=== PATIENT | male | born 2005 | race Caucasian/White ===

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

== ENCOUNTER 2025-05-15 15:46 | Emergency (ER) | payer BC, OTHER, SELFPAY ==
[2025-05-15 15:47] VITALS: BP 106/72; PULSE 96; RESP 18; TEMP 36.3; O2SAT 99; BMI 22.0
--- NOTE | 2025-05-15 16:28 | EX.ED.UPPERE ---
HPI History of Present Illness Chief Complaint: Upper Extremity Injury Narrative Narrative: Patient is a 20-year-old male with no known significant past medical history who presented to the emergency department chief complaint of left wrist pain. Patient states that he was playing soccer he tripped and someone landed on his wrist causing him immediate pain. He states that he not take anything for pain yet. He states that it hurts mainly around his wrist region. PFSH PFSH Home Medications ?Medication ?Instructions ?Recorded ?Last Taken ?Type escitalopram oxalate 10 mg tablet 10 mg PO DAILY 08/16/24 Unknown History lisdexamfetamine 30 mg capsule 30 mg PO DAILY 08/16/24 Unknown History (Vyvanse) ondansetron 4 mg disintegrating 4 mg PO Q6H PRN nausea and 05/15/25 Unknown Rx tablet vomiting #20 tabs oxycodone-acetaminophen 5 mg-325 1 tab PO Q6H PRN pain 2 days #8 05/15/25 Unknown Rx mg tablet (Endocet) tabs Allergy/AdvReac Type Severity Reaction Status Date / Time Fish Containing Products Allergy Severe Anaphylaxis Verified 05/15/25 15:47 (seafood) Surgical History Hx of shoulder surgery History of nasal surgery Social History Smoking Status: Never smoker ROS ROS ED ROS Narrative Neurological: Denies any numbness, weakness, tingling Musculoskeletal: Complains of left wrist pain as noted above Skin: Denies any rashes or lesions EXAM Physical Exam Narrative Exam Narrative: General: Patient lying in bed rest comfortably did not appear to be in acute distress Head: Atraumatic, normocephalic Eyes: PERRL bilaterally, EOMI bilaterally, no conjunctival injection noted Neck: Soft, supple, trachea midline Cardiovascular: Regular rate and rhythm Musculoskeletal: Patient has tenderness palpation over the left wrist, patient is able giving the okay sign and thumbs up sign Extremities: Radial pulses +2/4 in the bilateral extremities Neurological: Patient follow commands knew that he was at [facility] year is 2024 sensation grossly intact in the median, ulnar and radial nerve distribution bilaterally Skin: Warm, dry, intact no rashes or lesions noted Const Vital Signs: 05/15/25 15:47 Temperature 97.4 F L Temperature Source Temporal Pulse Rate 96 Respiratory Rate 18 Blood Pressure 106/72 Blood Pressure Mean 83 Pulse Ox 99 Oxygen Delivery Method Room Air MDM MDM MDM Narrative Medical decision making narrative: Patient is a 20-year-old male who presented to the emergency department the chief complaint of left wrist pain. On the differential diagnosis includes but not limited to distal radius fracture, ulnar fracture, both bone forearm fracture, musculoskeletal strain, wrist sprain. Patient be given [place] and Zofran. He will be reevaluated Patient's x-ray of the wrist reviewed by myself by radiology showed probable nondisplaced comminuted fracture of the scaphoid bone normal alignment. Discussed case with on-call orthopedic surgeon Dr. Rice who recommends placing the patient in thumb spica splint and obtain a CT scan that he will follow-up on in the office. I discussed this plan with the patient and family at bedside they are agreeable to this plan. See procedure note for separate details. He was advised to ice, elevate rotate Tylenol and ibuprofen [id number] you were given a prescription for severe pain and was advised to not operate anything under the influence this medication. He is given prescription also for Zofran to go with this. He is vies return with worsening symptoms or concerns. He is agreeable this plan all course concerns answered he is discharged home in stable condition. Procedure note Procedure: Thumb spica splint Indication: Scaphoid fracture Patient had Webril applied to the left upper extremity from the thumb down. Plaster was applied followed by more Webril followed by Tom wrap. Patient remains neurovascular intact after application. Discharge Plan Triage Chief Complaint: Upper Extremity Injury ED Provider: Shane Sloan Dx/Rx/DC Orders Clinical Impression: Closed comminuted fracture of waist of scaphoid of left wrist, Fall Prescriptions: New ondansetron 4 mg tablet,disintegrating 4 mg PO Q6H PRN (Reason: nausea and vomiting) Qty: 20 0RF oxycodone-acetaminophen [Endocet] 5-325 mg tablet 1 tab PO Q6H PRN (Reason: pain) 2 Days Qty: 8 0RF No Action escitalopram oxalate 10 mg tablet 10 mg PO DAILY lisdexamfetamine [Vyvanse] 30 mg capsule 30 mg PO DAILY Primary Care Provider: Care Physician,No Primary Referrals: Willi Rice MD [Med Staff - Active Staff] - Care Physician,No Primary [Primary Care Provider] - Activity Restrictions/Additional Instructions: Follow-up with Dr. Rice in the outpatient setting as we discussed. Ice, elevate, rotate Tylenol and ibuprofen [id number] when you do this you can take something every 3 hours for pain. Max dose Tylenol in 24 hours 4000 mg. Max dose of ibuprofen in 24 hours 3200 mg. Use the Endocet and Zofran for severe pain do not operate anything under the influence of this medication does make you sleepy and drowsy. Print Language: Armenian Disposition Disposition: Home, Self Care
[2025-05-15] MEDS: HYDROcodone Bitartrate/Apap 5/325 Tablet PO (16:33)
--- OUTSIDE RECORDS SUMMARY | 2025-05-15 16:38 | XMS RPT_ITS | CCD ---
Author Organization [facility] Care Team Providers Care Product Safety Coordinator Name Role Phone Unavailable Primary Care Provider KAEL Singh Referring Unavailable MAN CHAUHAN Attending Unavail able Regino Frank Attending Unavailable Care Physician, No Primary Primary Care Unava ilable Care Physician, No Primary Primary Care Unava ilable Darius Farrell Attending Unavailable Allergies Allergy Classification Reported Allergen(s) Allergy Type Date of Onset Reaction(s) Facility (2 sources) Fish derivative; Translations: [FISH DERIVED] Drug Allergy 2 Hives, Vomiting [facility] (2 sources) Shellfish; Translations: [SHELLFISH CONTAINING PRODUCTS] Drug Allergy 9 Other: See Comments [facility] (1 source) Fish Containing Products Drug allergy (disorder) 4 [facility] Repository Medications Current Medications Medication Drug Class(es) Dates Sig (Normalized) Sig (Original) diclofenac sodium 75 mg delayed release oral tablet (3 sources) Nonsteroidal Anti-inflammatory Drug Start: 09-10-2022 diclofenac, EC, (VOLTAREN) 75 mg EC tablet 09/10/2022 Active [id number] 0.3 ml EPINEPHrine 1 mg/ml auto-injector (1 source) alpha-Adrenergic Agonist, beta-Adrenergic Agonist, Catecholamine Start: 06-08-2022 EPINEPHrine (EPIPEN) 0.3 mg/0.3 mL auto-injector Inject 0.3 mg intramuscularly. 06/08/2022 Active escitalopram 10 mg oral tablet (3 sources) Serotonin Reuptake Inhibitor Start: 05-07-2024 take 1 tablet by mouth once daily escitalopram oxalate (LEXAPRO) 10 mg tablet Take 1 tablet by mouth once daily. 05/07/2024 Active fluticasone propionate 0.05 mg/actuat metered dose nasal spray (1 source) Corticosteroid fluticasone (FLONASE) 50 mcg/actuation nasal spray Use 1 [place] in the nose. Active hydrOXYzine hydrochloride 10 mg oral tablet (3 sources) Antihistamine Start: 05-07-2024 hydrOXYzine HCl (ATARAX) 10 mg tablet 1 to 2 tabs qhs 05/07/2024 Active lisdexamfetamine dimesylate 40 mg oral capsule (3 sources) Central Nervous System Stimulant Start: 01-21-2024 VYVANSE 40 mg capsule 01/21/2024 Active omeprazole 20 mg delayed release oral capsule (3 sources) Proton Pump Inhibitor Start: 04-14-2024 omeprazole (PRILOSEC) 20 mg capsule 04/14/2024 Active Problems Problem Classification Problem Date Documented Date Episodic/Chronic Joint disorders and dislocations; trauma-related (1 source) Recurrent dislocation, right shoulder; Translations: [Recurrent dislocation of joint, shoulder region] 06-18-2024 Episodic Other injuries and conditions due to external causes (2 sources) Injury of right foot; Translations: [Unspecified injury of right foot, initial encounter] 05-18-2024 Episodic Other injuries and conditions due to external causes (1 source) Unspecified injury of right foot, initial encounter; Translations: [Injury of right foot, initial encounter] Onset: 05-18-2024 Episodic Other injuries and conditions due to external causes (1 source) Unspecified injury of right ankle, initial encounter; Translations: [Unspecified injury of right ankle, initial encounter] Onset: 11-03-2024 Episodic Other non-traumatic joint disorders (1 source) Pain in right shoulder; Translations: [Pain in right shoulder] Onset: 12-22-2024 Episodic Residual codes; unclassified (1 source) History of operative procedure on shoulder; Translations: [Other specified postprocedural states] 06-18-2024 Episodic Results Test Name Value Interpretation Reference Range Facil ity Emergency Department Summary on 08-16-2024 Emergency Department Summary [facility] Medical Records Department [address] [place] [address] Emergency Department Summary 08/16/24 MR#: [id number] Acct: [id number] Name: ROSS LAWSON Rep #: [id number] : 2005 19 From: Regino Frank DO PCP: Care Physician,No Primary Status:DEP ER Location: ED HPI History of Present Illness Chief Complaint: Dislocation Informant: patient and friend Narrative Narrative: Patient is a 19-year-old male with past medical history of ADHD. 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 He reports that he has had surgery on it previously to help with recurrent dislocations but this did not take. He states he is scheduled to have surgery a second time in the next few months. He reports this evening just prior to arrival he was stretching in his dorm and his shoulder popped out. He states he tried to place it back in place which she is occasion able to do but was unsuccessful and therefore comes in for evaluation [facility] Home Medications ???Medication ???Instructions ???Recorded ???Last Taken ???Type escitalopram oxalate 10 mg tablet 10 mg PO DAILY 08/16/24 Unknown History lisdexamfetamine 30 mg capsule 30 mg PO DAILY 08/16/24 Unknown History (Vyvanse) Allergy/AdvReac Type Severity Reaction Status Date / Time Fish Containing Products Allergy Severe Anaphylaxis Verified 08/16/24 21:45 (seafood) Surgical History Hx of shoulder surgery History of nasal surgery Social History Smoking Status: Never smoker ROS ROS ED Constitutional Constitutional ED: Denies chills or fever(s) ENT ENT ED: Denies sore throat Cardiovascular Cardiovascular: Denies chest pain Respiratory/Chest Respiratory/Chest: Denies cough or dyspnea Gastrointestinal Gastrointestinal: Denies abdominal pain, diarrhea, nausea or vomiting Genitourinary Genitourinary ED: Denies dysuria Musculoskeletal Musculoskeletal: Reports other Details: Positive right shoulder pain/dislocation Integumentary Denies rash Neurologic Neurologic: Denies headache(s) or paresthesias Hematologic/Lymphatic Hematologic/Lymphatic : Denies easy bleeding or easy bruising EXAM Physical Exam Const Vital Signs: 08/16/24 21:42 Temperature 97.6 F L Temperature Source Temporal Pulse Rate 73 Respiratory Rate 16 Blood Pressure 135/88 H Blood Pressure Mean 103 Pulse Ox 99 Oxygen Delivery Method Room Air Positive well nourished and well developed General Appearance ED: well developed; Negative for pallor HEENT HEENT Narrative: Normocephalic atraumatic Eyes PERRL and EOMs intact bilaterally Neck supple Resp normal respiratory effort and clear to auscultation bilaterally Cardio regular rate and regular rhythm Extremity Extremity Narrative: Right upper extremity is neurovascularly intact; AIN/PIN are intact and normal. Patient has a positive sulcus sign along the right shoulder consistent with anterior shoulder dislocation. No obvious joint effusion noted. Remainder of the exam is normal Neuro oriented x3, CN's II-XII intact bilaterally and no sensory deficits noted Sensorium / Orientation: alert Psych mental status grossly normal Skin no rashes or lesions noted and no wounds General Skin Exam: Negative for jaundice or pallor MDM MDM MDM Narrative Medical decision making narrative: Patient arrived to the ER with stable vitals and reported a spontaneous dislocation to his right shoulder. History and physical exam is most consistent with an anterior shoulder dislocation. In order to ensure there was no secondary fracture such as a Hill-Sachs or Bankart fracture and that it truly was a dislocation not subluxation a x-ray was obtained. This showed anterior shoulder dislocation without acute injury. The patient was then given 4 mg of IV morphine with 5 mg of IV Versed. Traction was applied to the right shoulder and the arm was moved in a abducted and rotated manner and there was spontaneous resolution of the shoulder dislocation. Following relocation an x- ray was obtained which confirmed proper placement without secondary injury. On reevaluation the patient remains neurovascularly intact and is therefore safe for discharge now that his shoulder has been reduced History Record Review Discussion w/independent historian: Patient and Friend Radiography Diagnostic Testing: Clinical Impression(s) from Imaging Studies Shoulder X-Ray 08/16/24 22:10 IMPRESSION: Anterior glenohumeral joint dislocation. No evidence of a fracture. Electronically Signed: Freedom Yanez DO at 22:42 EST Reading Location ID and State: [id number] / [place] Tel , Service support [phone] (more content not included)... Normal [facility] Shoulder min 2 Viewson 08-16 Shoulder min 2 Views [facility] Imaging Services [address] [place], [place] [address] Shoulder min 2 Views MR#: [id number] Acct: [id number] Name: ROSS LAWSON Rep #: [id number] : 2005 M 19 From: Freedom Yanez MD PCP: Care Physician,No Primary Status: REG ER Study: Shoulder min 2 Views Date of Exam: 08/16/24 Exam# [id number] Ordering Dr: Regino Frank DO [id number] INDICATION: s/p reduction EXAMINATION/TECHNIQUE : X-RAY - RIGHT XR Shoulder Min 2 Views COMPARISON: X-rays from earlier same day. __ FINDINGS: SOFT TISSUES: Unremarkable. BONES/JOINTS: No fracture or dislocation. No significant degenerative changes. No erosive changes. _ RAD/Shoulder min 2 Views IMPRESSION: No fracture or dislocation. Electronically Signed: Freedom Yanez DO at 23:22 EST , CC: Regino Frank DO; No Primary Care Physician Plastic Molding Operator: Signed Normal [facility] Shoulder min 2 Views [facility] Imaging Services [address] [place] [id number] Shoulder min 2 Views MR#: [id number] Acct: [id number] Name: ROSS LAWSON Rep #: [id number] : 2005 M 19 From: Freedom Yanez MD PCP: Care Physician,No Primary Status: REG ER Study: Shoulder min 2 Views Date of Exam: 08/16/24 Exam# [id number] Ordering Dr: Regino Frank DO [id number] INDICATION: dislocation EXAMINATION/TECHNIQUE : X-RAY - RIGHT XR Shoulder Min 2 Views COMPARISON: None. __ FINDINGS: SOFT TISSUES: Unremarkable. BONES/JOINTS: The humeral head is displaced anterior and medial to the glenoid fossa. No evidence of a fracture. No significant degenerative changes. No erosive changes. _ RAD/Shoulder min 2 Views IMPRESSION: Anterior glenohumeral joint dislocation. No evidence of a fracture. Electronically Signed: Freedom Yanez DO at 22:42 EST , CC: Regino Frank DO; No Primary Care Physician Plastic Molding Operator: Signed [facility] CNOVon 06-18-2024 [facility] Office Visit (ORUPDO ) ROSS LAWSON ([id number]) 5 M Date Time Provider Department 06/18/24 1:00 PM MAN CHAUHAN During your visit today, we recorded the following information about you: Pulse Blood pressure Weight Height 79/minute 125/80 64 kg 1.778 m Man Chauhan MD 06/18/2024 3:39 PM Signed SHOULDER TRAUMA EXAM Brief History: The patient is a pleasant 19 year old right handed male who presents to the office with right shoulder pain. I have personally reviewed prior documentation and imaging. He had xray's done on 06-14-2024 at an ER in [place]. His surgeon is Adair Humphries from [facility]. Today, patient states his pain started 4 days ago, he was playing soccer and hit something behind him and his shoulder dislocated. He has been using ice and taking ibuprofen for the pain. He was wearing a sling but discontinued it a few days ago. He has had 2 previous dislocations to this shoulder, and had a previous shoulder surgery including Bankart Repair in August 2023. Patient states he is going to see his surgeon in [place] when he goes back home, but he is currently in season for soccer and to be able to play he needs cleared by Orthopedics. He presents today for evaluation. Ross is a 19-year-old male with a history of right shoulder Bankart repair in August 2023 in [place]. This most recent dislocation is his first since having the surgery. He had 2 prior dislocations prior to the surgery. 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 He states his right arm was extended behind him when another player struck her from behind, causing his shoulder to dislocate anteriorly. He states it was unable to be relocated at the field and he went to the ER for reduction. X-rays were taken and it was confirmed to be reduced. He briefly wore a sling for a couple of days. He states he has mild pain to the right shoulder at this time with movement but feels comfortable at rest. He has been taking ibuprofen and using ice. He does not feel unstable at this time. He feels he has good strength to the extremity. He denies numbness or tingling. He only recently went back to playing soccer after the surgery in August but states he is only played for a couple of weeks due to other sports injuries. Carri Sauceda [facility] transcribing for Dr. Man Chauhan MD PAIN EVALUATION 06/18/2024 1309 Pain Level: 4 Pain Location: Shoulder-Right Description: Aching Duration Amount of Time: 4 Duration Units: Days Frequency: Continuous Intervention/Comfort measure: Cold;Medication ORTHOPAEDIC HISTORY REVIEW: ALLERGIES Allergen Reactions Fish Derived Hives, Vomiting Shellfish Containin* Other: See Comments seafood Current Outpatient Medications Medication Sig Dispense Refill EPINEPHrine (EPIPEN) 0.3 mg/0.3 mL auto-injector Inject 0.3 mg intramuscularly. fluticasone (FLONASE) 50 mcg/actuation nasal spray Use 1 [place] in the nose. VYVANSE 40 mg capsule hydrOXYzine HCl (ATARAX) 10 mg tablet 1 to 2 tabs qhs escitalopram oxalate (LEXAPRO) 10 mg tablet Take 1 tablet by mouth once daily. omeprazole (PRILOSEC) 20 mg capsule diclofenac, EC, (VOLTAREN) 75 mg EC tablet No current facility-administered medications for this visit. History reviewed. No pertinent past medical history. PAST SURGICAL HISTORY Procedure Laterality Date SHOULDER SURGERY HX Right August 2023- Anchors put in shoulder due to dislocation BP 125/80 Pulse 79 Ht 5' 10 (1.78m) Wt 141 lb (64.0kg) BMI 20.23 kg/(m2). Review of Systems Constitutional: Negative. HENT: Negative. Respiratory: Negative. Cardiovascular: Negative. Gastrointestinal: Negative. Endocrine: Negative. Skin: Negative. Neurological: Negative. Hematological: Negative. Musculoskeletal: Negative. Right Shoulder Exam Tenderness Right shoulder tenderness location: Anterior shoulder. Range of Motion Active abduction: 160 External rotation: 60 Forward flexion: 160 Right shoulder internal rotation 0 degrees: L1. Muscle Strength The patient has normal right shoulder strength. Tests Apprehension: positive Other Erythema: absent Scars: present Sensation: normal Pulse: present Comments: No signs of infection at portal sites Left Shoulder Exam Tenderness Left shoulder tenderness location: anterior shoulder. Range of Motion Active abduction: 170 External rotation: 80 Forward flexion: 170 DIAGNOSTIC STUDIES: N/A Procedures Encounter Diagnosis ICD-10-CM 1. 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 S/P anterior Bankart repair of right shoulder Z98.890 Z87.828 PLAN: TREATMENT RISK AND MORBIDITY: History reviewed. No pertinent past medical history. PLAN: I spo (more content not included)... Normal [facility] Ankle min 3 Viewson 05-26-20 Ankle min 3 Views [facility] Imaging Services [address] [place], [place] [id number] Ankle min 3 Views MR#: [id number] Acct: [id number] Name: ROSS LAWSON Rep #: [id number] : 2005 M 19 From: Freedom Calles MD PCP: OUT OF TOWN DOCTOR Status: PRE ER Study: Ankle min 3 Views Date of Exam: 05/26/24 Exam# [id number] Ordering Dr: Abhi Soliman [id number] STUDY: X-RAY - RIGHT ANKLE REASON FOR EXAM: Male, 19 years old. Injury TECHNIQUE: 3 view(s) of the ankle. COMPARISON: None. FINDINGS: Normal visualized distal tibia and fibula. Normal medial and lateral malleoli. Normal tibiotalar articulation and ankle mortise. Normal visualized talus and calcaneus. The visualized subtalar, talonavicular, calcaneocuboid and tarsal articulations are normal. Mild soft tissue swelling overlying the lateral malleolus. RAD/Ankle min 3 Views IMPRESSION: Mild lateral malleolus sprain. No acute fracture or dislocation. Electronically Signed: Freedom Calles MD at 21:11 EDT , CC: ED PHYSICIAN PROVIDER Plastic Molding Operator: Signed Normal [facility] Emergency Department Summary on 05-26-2024 Emergency Department Summary [facility] Medical Records Department [address] [place] [id number] Emergency Department Summary 05/26/24 MR#: [id number] Acct: [id number] Name: ROSS LAWSON Rep #: [id number] : 2005 19 From: Darius Farrell DO PCP: Care Physician,No Primary Status:DEP ER Location: ED HPI History of Present Illness HPI Narrative: Patient presents with right ankle injury that occurred today. Patient states she was playing soccer and another player slid into his leg and hit him on the anterior lateral aspect of his right ankle. Patient describes the pain as sharp and aching. Patient states it is worse with pressure and weightbearing. Patient mitts to some tingling into his foot. Patient denies any weakness. Patient denies any head injury or loss of consciousness. Patient denies any other injuries. Chief Complaint: Lower Extremity Injury Informant: patient Occured/Mechanism Mechanism/Context: Yes direct blow Onset/Context/Timing Onset: Today Context: Sudden Onset Timing: Continuous Quality of Pain: Sharp and Aching Location: Right ankle Worsened by: Pressure, ambulation Relieved by: Rest Associated Symptoms Associated Symptoms: Positive for Parasthesia (Tingling); Negative for Weakness or Loss of Funtion PFSH PFSH no medical history Allergy/AdvReac Type Severity Reaction Status Date / Time Fish Containing Products Allergy Severe Anaphylaxis Verified 05/26/24 20:35 (seafood) Surgical History (Updated 05/26/24 @ 22:[address] Darius Farrell, DO) Hx of shoulder surgery History of nasal surgery ROS ROS ED Constitutional Constitutional ED: Denies chills or fever(s) Eyes Eyes: Denies blurry vision or change in vision ENT ENT ED: Denies rhinorrhea or sore throat Cardiovascular Cardiovascular: Denies chest pain or palpitations Respiratory/Chest Respiratory/Chest: Denies cough or dyspnea Gastrointestinal Gastrointestinal: Denies nausea or vomiting Genitourinary Genitourinary ED: Denies dysuria or hematuria Musculoskeletal Musculoskeletal: Denies back pain or neck pain Integumentary Denies abscess or rash Neurologic Neurologic: Denies headache(s) or weakness Allergic/Immunologic Allergic/Immunologic ED: Denies mouth swelling or urticaria EXAM Physical Exam Const Vital Signs: 05/26/24 20:35 Temperature 97 F L Temperature Source Temporal Pulse Rate 103 H Respiratory Rate 18 Blood Pressure 117/66 Blood Pressure Mean 83 Pulse Ox 100 Oxygen Delivery Method Room Air Positive well nourished and well developed General Appearance ED: well developed and NAD HEENT Reports moist mucous membranes Neck full ROM and supple Extremity Extremity Narrative: There is tenderness and edema over the lateral aspect of the right ankle. There is no obvious deformity noted. Range of motion was limited in all motions of the right ankle secondary to pain. There is a strong pedal pulse noted. Sensation was intact to light touch in all digits. Capillary refill was less than 2 seconds in all digits. Strength is 5/5 bilaterally in the lower extremities. Neuro oriented x3, CN's II-XII intact bilaterally, moves all extremities and no sensory deficits noted Sensorium / Orientation: alert Motor Exam: strength 5/5 throughout Psych mental status grossly normal MDM MDM MDM Narrative Medical decision making narrative: Differential diagnosis includes fracture, sprain, contusion. X-rays of the right ankle will be obtained to assess for fracture. Radiography Diagnostic Testing: Clinical Impression(s) from Imaging Studies Ankle X-Ray 05/26/24 20:50 IMPRESSION: Mild lateral malleolus sprain. No acute fracture or dislocation. Electronically Signed: Freedom Calles MD at 21:11 EDT , X-rays of the right ankle were obtained. There are 3 views. On my independent interpretation, there is no acute fracture or dislocation noted. There is soft tissue swelling noted. Radiologist also interpreted the x-rays and agrees. Treatment and Re-Evaluation Narrative: Patient was in a walking boot from his market development trainer at the [facility]. Patient was instructed to maintain the walking boot. Patient was instructed to follow-up with his primary care physician in 5 to 7 days. Patient was instructed to follow-up with the training staff at the [facility] for therapy and further treatment. Patient was instructed to take Tylenol or ibuprofen as needed for pain. Patient understood and was agreeable with the plan. All questions were answered. Discharge Plan Triage Chief Complaint: Lower Extremity Injury ED Provider: Darius Farrell Dx/Rx/DC Orders Clinical Impression: Right ankle sp (more content not included)... [facility] ([facility] ROSS LAWSON ([id number]) 5 M Date Time Provider Department 05/18/24 11:30 AM KAEL LACEY [facility] During your visit today, we recorded the following information about you: Temperature Pulse Respiration Blood pressure 98.4 degrees 72/minute 20/minute 130/80 Weight 63.1 kg Kael LaceySHIVA.SENIOR CONTRACTS ADMINISTRATOR 05/18/2024 2:53 PM Addendum [facility] NOTE Subjective Ross Lawson is a 19 year old year old who presents to express care today with complaint of a Right foot injury while playing soccer yesterday. Pain Onset- yesterday- 1 day Location- Dorsal aspect of Right foot Duration-constant pain Characteristics- sharp Aggravating/alleviati ng factors- walking Radiation- none Treatments- took OTC pain medications Symptoms- did not have LOC or any additional systemic symptoms. Denies headaches, fever, sore throat, cough, shortness of breath, chest pains, Nausea, vomiting, changes in bowel or bladder or skin rashes. Aside from symptoms as described above, patient has no other complaints at this time. HPI: see above Review of Systems Constitutional: Negative for chills, fatigue and fever. Respiratory: Negative for cough, shortness of breath and wheezing. Cardiovascular: Negative for chest pain, palpitations and leg swelling. Gastrointestinal: Negative for abdominal pain, diarrhea, nausea and vomiting. Genitourinary: Negative for dysuria, frequency and urgency. Musculoskeletal: Positive for joint swelling (Pain to dorsum of foot 8-9/10). Skin: Positive for color change (bruising to dorsum of foot x 1 day). Neurological: Negative for dizziness, weakness and headaches. ALLERGIES Not on File Current Outpatient Medications on File Prior to Visit Medication Sig VYVANSE 40 mg capsule hydrOXYzine HCl (ATARAX) 10 mg tablet 1 to 2 tabs qhs escitalopram oxalate (LEXAPRO) 10 mg tablet Take 1 tablet by mouth once daily. omeprazole (PRILOSEC) 20 mg capsule diclofenac, EC, (VOLTAREN) 75 mg EC tablet No current facility-administered medications on file prior to visit. There is no problem list on file for this patient. Social History Tobacco Use Smoking status: Never Passive exposure: Never Smokeless tobacco: Never Objective BP 130/80 Pulse 72 Temp 36.9 ?C (98.4 ?F) Resp 20 Wt 63.1 kg (139 lb 1.8 oz) SpO2 98% Physical Exam Vitals reviewed. Constitutional: General: He is not in acute distress. Appearance: Normal appearance. He is not ill-appearing or toxic-appearing. Cardiovascular: Rate and Rhythm: Normal rate and regular rhythm. Pulses: Normal pulses. Heart sounds: Normal heart sounds. Pulmonary: Effort: Pulmonary effort is normal. Breath sounds: Normal breath sounds. Abdominal: General: Bowel sounds are normal. Palpations: Abdomen is soft. Musculoskeletal: Legs: Skin: General: Skin is warm and dry. Capillary Refill: Capillary refill takes less than 2 seconds. Neurological: Mental Status: He is alert and oriented to person, place, and time. Assessment/Plan 1. Injury of right foot, initial encounter - XR FOOT GENERAL 3V AP/LAT/OBL RIGHT; Future -Patient advised to drink fluids, get rest and take OTC Pain medications as needed. -R.I.C.E. Education given -Ok to use Boot Splint given by [place] at [facility] Patient given educational materials - see instructions. Discussed use, benefit, and side effects of prescribed medications. All questions answered. Patient advised to follow up with PCP in one week, or sooner if symptoms worsen or persist. If symptoms become severe- GO TO ED. Patient verbalized understanding and agreeable with treatment plan. Kael Lacey APRN [facility] 05/18/2024 11:45 AM Kael Lacey APRN.[facility] 05/18/2024 11:53 AM Signed R.I.C.E. The general care of your injury includes the following: Resting, Icing, Compressing and Elevating the injured area. Remember this as RICE. REST: Limit the use of the injured body part. ICE: By applying ice to the affected area, swelling and pain can be reduced. Place some ice cubes in a re-sealable (Ziploc) bag and add some water. Put a thin washcloth between the bag and your skin. Apply the ice bag to the area for at least 20 minutes. Do this at least 4 times per day. Using the ice for longer times and more frequently is OK. NEVER APPLY ICE DIRECTLY TO THE SKIN. COMPRESS: Compression means to apply pressure around the injured area such as with a splint, cast or an patricia bandage. Compression decreases swelling and improves comfort. Compression should be tight enough to relieve swelling but not so tight as to decrease circulation. Increasing pain, numbness, tingling, or change in skin color, are all signs of decreased circulation. ELEVATE: Elevate the injured part. For example, elevate your foot by placing it on a chair while sitting, or proppin (more content not included)... Normal [facility] XR FOOT 3V AP/LAT/OBL RTon 0 05-18-2024 XR FOOT 3V AP/LAT/OBL RT * * *Final Report* * * DATE OF EXAM: May 18 2024 11:56AM [id number] - XR FOOT 3V AP/LAT/OBL RT / PROCEDURE REASON: Injury of right foot, initial encounter * * * * Physician Interpretation * * * * EXAM TITLE: XR FOOT 3V AP/LAT/OBL RT EXAM DATE/TIME: 05/18/2024 11:56 AM COMPARISON: None CLINICAL INDICATION/HISTORY: Injury. TECHNIQUE: AP, lateral and oblique views of the right foot are presented. FINDINGS: No acute fractures or subluxations are noted. The joint spaces are well preserved. The mineralization of the bones is normal. There is no significant soft tissue swelling. IMPRESSION: No acute radiographic abnormalities seen in the right foot. Plastic Molding Operator: MARCO ANTONIO Transcribe Date/Time: May 18 2024 2:40P Dictated by : JOSE RAUL WILBURN MD This examination was interpreted and the report reviewed and electronically signed by: JOSE RAUL WILBURN MD on May 18 2024 2:49PM EST [id number] Normal [facility] XR Foot - right AP and Later al and obliqueon 05-18-2024 IMPRESSION: No acute radiographic abnormalities seen in the right foot. Plastic Molding Operator: [facility] Transcribe Date/Time: May 18 2024 2:40P Dictated by : JOSE RAUL WILBURN MD This examination was interpreted and the report reviewed and electronically signed by: JOSE RAUL WILBURN MD on May 18 2024 2:49PM EST DIVISION OF RADIOLOGY * * *Final Report* * * DATE OF EXAM: May 18 2024 11:56AM [id number] - XR FOOT 3V AP/LAT/OBL RT / PROCEDURE REASON: Injury of right foot, initial encounter * * * * Physician Interpretation * * * * EXAM TITLE: XR FOOT 3V AP/LAT/OBL RT EXAM DATE/TIME: 05/18/2024 11:56 AM COMPARISON: None CLINICAL INDICATION/HISTORY: Injury. TECHNIQUE: AP, lateral and oblique views of the right foot are presented. FINDINGS: No acute fractures or subluxations are noted. The joint spaces are well preserved. The mineralization of the bones is normal. There is no significant soft tissue swelling. DIVISION OF RADIOLOGY Provider, Giorgio Mary - 05/18/2024 * * *Final Report* * * DATE OF EXAM: May 18 2024 11:56AM [id number] - XR FOOT 3V AP/LAT/OBL RT / PROCEDURE REASON: Injury of right foot, initial encounter * * * * Physician Interpretation * * * * EXAM TITLE: XR FOOT 3V AP/LAT/OBL RT EXAM DATE/TIME: 05/18/2024 11:56 AM COMPARISON: None CLINICAL INDICATION/HISTORY: Injury. TECHNIQUE: AP, lateral and oblique views of the right foot are presented. FINDINGS: No acute fractures or subluxations are noted. The joint spaces are well preserved. The mineralization of the bones is normal. There is no significant soft tissue swelling. IMPRESSION IMPRESSION: No acute radiographic abnormalities seen in the right foot. Plastic Molding Operator: [facility] Transcribe Date/Time: May 18 2024 2:40P Dictated by : JOSE RAUL WILBURN MD This examination was interpreted and the report reviewed and electronically signed by: JOSE RAUL WILBURN MD on May 18 2024 2:49PM EST [facility] Radiology Study observation (narrative) [facility] XR Foot - right AP and Later al and obliqueOrdered By: [facility] Provider on 05-18-2024 [facility] Vital Signs Date Time Vital Sign Value Performing Clinician Fannie banuelos 06-18-2024 13:12-0400 Body height 177.8 cm Man gerard MD Work Phone: [facility] 06-18-2024 13:12-0400 Body mass index (BMI) [Ratio] 20.23 kg/m2 Man Chauhan MD Work Phone: [facility] 06-18-2024 13:12-040 Body weight 63.96 kg Man gerard MD Work Phone: [facility] 06-18-2024 13:12-0400 Diastolic blood pressure 80 mm[Hg] Man Chauhan MD Work Phone: [facility] 06-18-2024 13:12-0400 Heart rate 79 /min Man gerard MD Work Phone: [facility] 06-18-2024 13:12-0400 Systolic blood pressure 125 mm[Hg] Man Chauhan MD Work Phone: [facility] 05-18-2024 11:38-0400 Body temperature 98.4 [degF] Kael Lacey COPY DIRECTOR.SENIOR CONTRACTS ADMINISTRATOR Work Phone: [facility] 05-18-2024 11:38-0400 Body weight 63.1 kg Kael Lacey APRN.SENIOR CONTRACTS ADMINISTRATOR Work Phone: [facility] 05-18-2024 11:38-0400 Diastolic blood pressure 80 mm[Hg] Kael Lacey COPY DIRECTOR.SENIOR CONTRACTS ADMINISTRATOR Work Phone: [facility] 05-18-2024 11:38-0400 Heart rate 72 /min Kael Lacey APRN.SENIOR CONTRACTS ADMINISTRATOR Work Phone: [facility] 05-18-2024 11:38-0400 Respiratory rate 20 /min Kael Lacey COPY DIRECTOR.SENIOR CONTRACTS ADMINISTRATOR Work Phone: [facility] 05-18-2024 11:38-0400 SaO2% (BldA) [Mass fraction] 98 % Kael Lacey APRN.SENIOR CONTRACTS ADMINISTRATOR Work Phone: [facility] 05-18-2024 11:38-0400 Systolic blood pressure 130 mm[Hg] Kael Lacey COPY DIRECTOR.SENIOR CONTRACTS ADMINISTRATOR Work Phone: [facility] Encounters Encounter Date Encounter Type Care Provider Facility Start: 08-16-2024 End: 08-16-2024 Emergency department patient visit [facility] Facility:[facility] Start: 06-18-2024 End: 06-18-2024 Office outpatient new 30 minutes Man Chauhan MD Work Phone: [facility] Comment on above: Recurrent anterior d islocation of right shoulder (Primary Dx); S/P anterior Bankart repair of right shoulder Start: 06-18-2024 End: 06-18-2024 ambulatory MAN CHAUHAN Facility:[id number] Start: 05-26-2024 End: 05-26-2024 Emergency department patient visit No Primary Care Physician Facility:[facility] Start: 05-18-2024 End: 05-18-2024 Subsequent hospital visit by physician Anuradha [facility] Work Phone: Radiology Comment on above: Injury of right foot , initial encounter [K89.921A] Start: 05-18-2024 End: 05-18-2024 ambulatory KAEL LACEY Facility:[facility] Start: 05-18-2024 End: 05-18-2024 Patient encounter procedure Kael Lacey COPY DIRECTOR.SENIOR CONTRACTS ADMINISTRATOR Work Phone: [facility] Comment on above: Injury of right foot , initial encounter (Primary Dx) Procedures Date Procedure Procedure Detail Performing Clinician Start: 05-18-2024 Radex foot complete minimum 3 views Kael Lacey COPY DIRECTOR.SENIOR CONTRACTS ADMINISTRATOR Work Phone: Plan of Treatment Date Care Activity Detail Author Start: 05-28-2026 Urine microalbumin profile DTa P,Tdap,Td Vaccine (7 - Td or Tdap) [facility] Start: 05-31-2024 Covid-19 Vaccine ( season) Covid-19 Vaccine () [facility] Start: 05-31-2024 Influenza vaccination Influenza Vacc ine (#1) [facility] Start: 05-31-2023 Covid-19 Vaccine ( season) Covid-19 Vaccine () [facility] Start: 2023 Anxiety Screening Anxiety Screening [facility] Start: 2023 Depression Screening Depression Scre ening [facility] Start: 2023 Hepatitis C screening Hepatitis C Sc vero [facility] Start: 2023 HIV screening HIV Screening [facility] Start: 2019 Peds To Adult Transi tion Annual Assessment Peds To Adult Transition Annual Assessment [facility] Start: 2017 Peds To Adult Transi tion Initial Discussion Peds To Adult Transition Initial Discussion [facility] Immunizations Immunization Date Immunization Notes Care Provider Melody paz 08-22-2022 influenza virus vacc ine, unspecified formulation Kael Lacey APRN.SENIOR CONTRACTS ADMINISTRATOR Work Phone: [facility] Payers Date Payer Category Payer Self-pay 2023 Unknown [id number] 2022 Unknown [id number] 2022 Unknown [id number] Unknown [id number] Unknown [id number] Social History Date Type Detail Facility Start: 05-18-2024 Tobacco smoking status NHIS Never smoked tobacco [facility] Start: 05-18-2024 Tobacco use and exposure Smokeless tobacco non-user [facility] Start: 05-18-2024 End: 06-18-2024 History of Social function [facility] Start: 05-18-2024 End: 06-18-2024 Tobacco use panel [facility] Start: 2005 Sex assigned at Not on file [facility] NEGATED: Highlighted rowStart: NINF History of tobacco use Passive smoker [facility] Clinical Notes 05-18-2024 to 06-18-2024 Man Chauhan MD - 06/18/2024 1:02 PM EDTPatient InstructionsThJeri barnett, RT(R) - 05/18/2024 11:50 AM Kael Ambrose APRN.CNP - 05/18/2024 11:45 AM EDT Note Date & Type Note Facility 06-18-2024 Note HNO ID: [id number] Author: MAN CHAUHAN MD Service: ? Author Type: Physician Type: Progress Notes Filed: 06/18/2024 15:39 Note Text: SHOULDER TRAUMA EXAM Brief History: The patient is a pleasant 19 year old right handed male who presents to the office with right shoulder pain. I have personally reviewed prior documentation and imaging. He had xray's done on 06-14-2024 at an ER in [place]. His surgeon is Adair Humphries from [facility]. Today, patient states his pain started 4 days ago, he was playing soccer and hit something behind him and his shoulder dislocated. He has been using ice and taking ibuprofen for the pain. He was wearing a sling but discontinued it a few days ago. He has had 2 previous dislocations to this shoulder, and had a previous shoulder surgery including Bankart Repair in August 2023. Patient states he is going to see his surgeon in [place] when he goes back home, but he is currently in season for soccer and to be able to play he needs cleared by Orthopedics. He presents today for evaluation. Ross is a 19-year-old male with a history of right shoulder Bankart repair in August 2023 in [place]. This most recent dislocation is his first since having the surgery. He had 2 prior dislocations prior to the surgery. 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 He states his right arm was extended behind him when another player struck her from behind, causing his shoulder to dislocate anteriorly. He states it was unable to be relocated at the field and he went to the ER for reduction. X-rays were taken and it was confirmed to be reduced. He briefly wore a sling for a couple of days. He states he has mild pain to the right shoulder at this time with movement but feels comfortable at rest. He has been taking ibuprofen and using ice. He does not feel unstable at this time. He feels he has good strength to the extremity. He denies numbness or tingling. He only recently went back to playing soccer after the surgery in August but states he is only played for a couple of weeks due to other sports injuries. Carri Sauceda Eleonora transcribing for Dr. Man Chauhan MD PAIN EVALUATION 06/18/2024 1309 Pain Level: 4 Pain Location: Shoulder-Right Description: Aching Duration Amount of Time: 4 Duration Units: Days Frequency: Continuous Intervention/Comfort measure: Cold;Medication ORTHOPAEDIC HISTORY REVIEW: ALLERGIES Allergen Reactions Fish Derived Hives, Vomiting Shellfish Containin* Other: See Comments seafood Current Outpatient Medications Medication Sig Dispense Refill EPINEPHrine (EPIPEN) 0.3 mg/0.3 mL auto-injector Inject 0.3 mg intramuscularly. fluticasone (FLONASE) 50 mcg/actuation nasal spray Use 1 [place] in the nose. VYVANSE 40 mg capsule hydrOXYzine HCl (ATARAX) 10 mg tablet 1 to 2 tabs qhs escitalopram oxalate (LEXAPRO) 10 mg tablet Take 1 tablet by mouth once daily. omeprazole (PRILOSEC) 20 mg capsule diclofenac, EC, (VOLTAREN) 75 mg EC tablet No current facility-administered medications for this visit. History reviewed. No pertinent past medical history. PAST SURGICAL HISTORY Procedure Laterality Date SHOULDER SURGERY HX Right August 2023- Anchors put in shoulder due to dislocation BP 125/80 Pulse 79 Ht 5' 10 (1.78m) Wt 141 lb (64.0kg) BMI 20.23 kg/(m2). Review of Systems Constitutional: Negative. HENT: Negative. Respiratory: Negative. Cardiovascular: Negative. Gastrointestinal: Negative. Endocrine: Negative. Skin: Negative. Neurological: Negative. Hematological: Negative. Musculoskeletal: Negative. Right Shoulder Exam Tenderness Right shoulder tenderness location: Anterior shoulder. Range of Motion Active abduction: 160 External rotation: 60 Forward flexion: 160 Right shoulder internal rotation 0 degrees: L1. Muscle Strength The patient has normal right shoulder strength. Tests Apprehension: positive Other Erythema: absent Scars: present Sensation: normal Pulse: present Comments: No signs of infection at portal sites Left Shoulder Exam Tenderness Left shoulder tenderness location: anterior shoulder. Range of Motion Active abduction: 170 External rotation: 80 Forward flexion: 170 DIAGNOSTIC STUDIES: N/A Procedures Encounter Diagnosis ICD-10-CM 1. 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 S/P anterior Bankart repair of right shoulder Z98.890 Z87.828 PLAN: TREATMENT RISK AND MORBIDITY: History reviewed. No pertinent past medical history. PLAN: I spoke with the patient in the office where we discussed the patient's history, symptoms, physical exam findings and radiographic images. I have diagnosed the patient with recurrent anterior instability right shoulder status post Bankart repair in August 2023 in [place] (more content not included)... [facility] 06-18-2024 History of Presen t illness Narrative SHOULDER TRAUMA EXAM Brief History: The patient is a pleasant 19 year old right handed male who presents to the office with right shoulder pain. I have personally reviewed prior documentation and imaging. He had xray's done on 06-14-2024 at an ER in [place]. His surgeon is Adair Humphries from [facility]. Today, patient states his pain started 4 days ago, he was playing soccer and hit something behind him and his shoulder dislocated. He has been using ice and taking ibuprofen for the pain. He was wearing a sling but discontinued it a few days ago. He has had 2 previous dislocations to this shoulder, and had a previous shoulder surgery including Bankart Repair in August 2023. Patient states he is going to see his surgeon in [place] when he goes back home, but he is currently in season for soccer and to be able to play he needs cleared by Orthopedics. He presents today for evaluation. Ross is a 19-year-old male with a history of right shoulder Bankart repair in August 2023 in [place]. This most recent dislocation is his first since having the surgery. He had 2 prior dislocations prior to the surgery. 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 He states his right arm was extended behind him when another player struck her from behind, causing his shoulder to dislocate anteriorly. He states it was unable to be relocated at the field and he went to the ER for reduction. X-rays were taken and it was confirmed to be reduced. He briefly wore a sling for a couple of days. He states he has mild pain to the right shoulder at this time with movement but feels comfortable at rest. He has been taking ibuprofen and using ice. He does not feel unstable at this time. He feels he has good strength to the extremity. He denies numbness or tingling. He only recently went back to playing soccer after the surgery in August but states he is only played for a couple of weeks due to other sports injuries. Carri Sauceda transcribing for Dr. Man Chauhan MD PAIN EVALUATION 06/18/2024 1309 Pain Level: 4 Pain Location: Shoulder-Right Description: Aching Duration Amount of Time: 4 Duration Units: Days Frequency: Continuous Intervention/Comfort measure: Cold;Medication ORTHOPAEDIC HISTORY REVIEW: ALLERGIES Allergen Reactions Fish Derived Hives, Vomiting Shellfish Containin* Other: See Comments seafood Current Outpatient Medications Medication Sig Dispense Refill EPINEPHrine (EPIPEN) 0.3 mg/0.3 mL auto-injector Inject 0.3 mg intramuscularly. fluticasone (FLONASE) 50 mcg/actuation nasal spray Use 1 [place] in the nose. VYVANSE 40 mg capsule hydrOXYzine HCl (ATARAX) 10 mg tablet 1 to 2 tabs qhs escitalopram oxalate (LEXAPRO) 10 mg tablet Take 1 tablet by mouth once daily. omeprazole (PRILOSEC) 20 mg capsule diclofenac, EC, (VOLTAREN) 75 mg EC tablet No current facility-administered medications for this visit. History reviewed. No pertinent past medical history. PAST SURGICAL HISTORY Procedure Laterality Date SHOULDER SURGERY HX Right August 2023- Anchors put in shoulder due to dislocation BP 125/80 Pulse 79 Ht 5' 10 (1.78m) Wt 141 lb (64.0kg) BMI 20.23 kg/(m^2). Review of Systems Constitutional: Negative. HENT: Negative. Respiratory: Negative. Cardiovascular: Negative. Gastrointestinal: Negative. Endocrine: Negative. Skin: Negative. Neurological: Negative. Hematological: Negative. Musculoskeletal: Negative. Right Shoulder Exam Tenderness Right shoulder tenderness location: Anterior shoulder. Range of Motion Active abduction: 160 External rotation: 60 Forward flexion: 160 Right shoulder internal rotation 0 degrees: L1. Muscle Strength The patient has normal right shoulder strength. Tests Apprehension: positive Other Erythema: absent Scars: present Sensation: normal Pulse: present Comments: No signs of infection at portal sites Left Shoulder Exam Tenderness Left shoulder tenderness location: anterior shoulder. Range of Motion Active abduction: 170 External rotation: 80 Forward flexion: 170 DIAGNOSTIC STUDIES: N/A Procedures Encounter Diagnosis ICD-10-CM 1. 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 S/P anterior Bankart repair of right shoulder Z98.890 Z87.828 PLAN: TREATMENT RISK & MORBIDITY: History reviewed. No pertinent past medical history. PLAN: I spoke with the patient in the office where we discussed the patient's history, symptoms, physical exam findings and radiographic images. I have diagnosed the patient with recurrent anterior instability right shoulder status post Bankart repair in August 2023 in [place] and closed reduction on 06/14/2024 I had a long discussion with Ross regarding his recurrent instability. He has only recently returned to sport after surgery in August 2023. He states that there was not a significant injury or contact causing him to dislocate on 06/14/2024. He has a very good relationship with Dr. Humphries in [place] and is planning to follow-up soon with him in office, hopefully in the next week. We discussed the risks of immediate return to sport and the potential impact it may have on his shoulder both in the acute and long-term. Due to this, and because he is going to see his operating surgeon soon, we have decided to hold him out of sport in the interim. He understands and agrees with this plan of care. Should he need anything else in the future, or have any questions or concerns, I we will see him again in office on a as needed basis. Continue ice, ibuprofen, activity restrictions and modifications. All questions were answered for the patient and they know to contact our office should their symptoms worsen or if they have concerns with our current treatment plan. The patient expressed understanding. Man Chauhan MD I, Dr. Man Chauhan MD. have reviewed and approved the information in this document that was created in the medical record and transcribed by Carri VALLES documented in this encounter [facility] 05-18-2024 Instructions Kael Lacey APRN.[facility] - 05/18/2024 11:53 AM EDT R.I.C.E. The general care of your injury includes the following: Resting, Icing, Compressing and Elevating the injured area. Remember this as RICE. REST: Limit the use of the injured body part. ICE: By applying ice to the affected area, swelling and pain can be reduced. Place some ice cubes in a re-sealable (Ziploc) bag and add some water. Put a thin washcloth between the bag and your skin. Apply the ice bag to the area for at least 20 minutes. Do this at least 4 times per day. Using the ice for longer times and more frequently is OK. NEVER APPLY ICE DIRECTLY TO THE SKIN. COMPRESS: Compression means to apply pressure around the injured area such as with a splint, cast or an patricia bandage. Compression decreases swelling and improves comfort. Compression should be tight enough to relieve swelling but not so tight as to decrease circulation. Increasing pain, numbness, tingling, or change in skin color, are all signs of decreased circulation. ELEVATE: Elevate the injured part. For example, elevate your foot by placing it on a chair while sitting, or propping it up on pillows when lying down. documented in this encounter [facility] 05-18-2024 History of Presen t illness Narrative Radiology Service Progress Note PATIENT NAME: Ross Lawson DATE OF SERVICE: May 18, 2024 TIME: 11:49 AM PATIENT IDENTITY VERIFICATION COMPLETED USING TWO (2) IDENTIFIERS: Name and Date of confirmed by patient verbally. FALL SCREENING: Has the patient had 2 falls in the last year or 1 fall with injury or currently using an Ambulatory Assistive Device (Walker, Cane, Wheelchair, Crutches, etc.)? Yes, Patient High Risk for Falls What interventions were put in place to prevent falls during this visit? Instructed Patient to Call for Help if Needed, Offered Assistance with Transfers/Clothing, and Increased Observations by Caregivers PATIENT GENDER DATA: Male PATIENT RELEVANT IMPLANT DATA REVIEWED: Yes PATIENT PRESENTS WITH AN IMPLANTABLE OR ATTACHED INSPECTION MACHINE TENDER: No RADIOLOGY DEPARTMENT: General X-ray: Exam(s) Completed: Lower Extremity X-Ray(s): Foot, Right PERIPHERAL IV DATA: Not applicable SIGNED BY: RT Francisco(Kim) May 18, 2024 11:49 AM documented in this encounter [facility] 05-18-2024 Note HNO ID: [id number] Author: JERI KAUFMAN RT(R) Service: Radiology Author Type: Technologist Type: Progress Notes Filed: 05/18/2024 11:57 Note Text: Radiology Service Progress Note PATIENT NAME: Ross Lawson DATE OF SERVICE: May 18, 2024 TIME: 11:49 AM PATIENT IDENTITY VERIFICATION COMPLETED USING TWO (2) IDENTIFIERS: Name and Date of confirmed by patient verbally. FALL SCREENING: Has the patient had 2 falls in the last year or 1 fall with injury or currently using an Ambulatory Assistive Device (Walker, Cane, Wheelchair, Crutches, etc.)? Yes, Patient High Risk for Falls What interventions were put in place to prevent falls during this visit? Instructed Patient to Call for Help if Needed, Offered Assistance with Transfers/Clothing, and Increased Observations by Caregivers PATIENT GENDER DATA: Male PATIENT RELEVANT IMPLANT DATA REVIEWED: Yes PATIENT PRESENTS WITH AN IMPLANTABLE OR ATTACHED INSPECTION MACHINE TENDER: No RADIOLOGY DEPARTMENT: General X-ray: Exam(s) Completed: Lower Extremity X-Ray(s): Foot, Right PERIPHERAL IV DATA: Not applicable SIGNED BY: Jeri Kaufman RT(R) May 18, 2024 11:49 AM [facility] 05-18-2024 Note HNO ID: [id number] Author: KAEL LACEY APRN.SENIOR CONTRACTS ADMINISTRATOR Service: ? Author Type: Nurse Practitioner Type: Progress Notes Filed: 05/18/2024 14:53 Note Text: [facility] Subjective Ross Lawson is a 19 year old year old who presents to [facility] care today with complaint of a Right foot injury while playing soccer yesterday. Pain Onset- yesterday- 1 day Location- Dorsal aspect of Right foot Duration-constant pain Characteristics- sharp Aggravating/alleviating factors- walking Radiation- none Treatments- took OTC pain medications Symptoms- did not have LOC or any additional systemic symptoms. Denies headaches, fever, sore throat, cough, shortness of breath, chest pains, Nausea, vomiting, changes in bowel or bladder or skin rashes. Aside from symptoms as described above, patient has no other complaints at this time. HPI: see above Review of Systems Constitutional: Negative for chills, fatigue and fever. Respiratory: Negative for cough, shortness of breath and wheezing. Cardiovascular: Negative for chest pain, palpitations and leg swelling. Gastrointestinal: Negative for abdominal pain, diarrhea, nausea and vomiting. Genitourinary: Negative for dysuria, frequency and urgency. Musculoskeletal: Positive for joint swelling (Pain to dorsum of foot 8-9/10). Skin: Positive for color change (bruising to dorsum of foot x 1 day). Neurological: Negative for dizziness, weakness and headaches. ALLERGIES Not on File Current Outpatient Medications on File Prior to Visit Medication Sig VYVANSE 40 mg capsule hydrOXYzine HCl (ATARAX) 10 mg tablet 1 to 2 tabs qhs escitalopram oxalate (LEXAPRO) 10 mg tablet Take 1 tablet by mouth once daily. omeprazole (PRILOSEC) 20 mg capsule diclofenac, EC, (VOLTAREN) 75 mg EC tablet No current facility-administered medications on file prior to visit. There is no problem list on file for this patient. Social History Tobacco Use Smoking status: Never Passive exposure: Never Smokeless tobacco: Never Objective BP 130/80 Pulse 72 Temp 36.9 ?C (98.4 ?F) Resp 20 Wt 63.1 kg (139 lb 1.8 oz) SpO2 98% Physical Exam Vitals reviewed. Constitutional: General: He is not in acute distress. Appearance: Normal appearance. He is not ill-appearing or toxic-appearing. Cardiovascular: Rate and Rhythm: Normal rate and regular rhythm. Pulses: Normal pulses. Heart sounds: Normal heart sounds. Pulmonary: Effort: Pulmonary effort is normal. Breath sounds: Normal breath sounds. Abdominal: General: Bowel sounds are normal. Palpations: Abdomen is soft. Musculoskeletal: Legs: Skin: General: Skin is warm and dry. Capillary Refill: Capillary refill takes less than 2 seconds. Neurological: Mental Status: He is alert and oriented to person, place, and time. Assessment/Plan 1. Injury of right foot, initial encounter - XR FOOT GENERAL 3V AP/LAT/OBL RIGHT; Future -Patient advised to drink fluids, get rest and take OTC Pain medications as needed. -R.I.C.E. Education given -Ok to use Boot Splint given by Attending Ambulatory Care at [facility] Patient given educational materials - see instructions. Discussed use, benefit, and side effects of prescribed medications. All questions answered. Patient advised to follow up with PCP in one week, or sooner if symptoms worsen or persist. If symptoms become severe- GO TO ED. Patient verbalized understanding and agreeable with treatment plan. Kael Lacey APRN SENIOR CONTRACTS ADMINISTRATOR 05/18/2024 11:45 AM [facility] 05-18-2024 History of Presen t illness Narrative Images from the original note were not included. [facility] NOTE Subjective Ross Lawson is a 19 year old year old who presents to [facility] care today with complaint of a Right foot injury while playing soccer yesterday. Pain Onset- yesterday- 1 day Location- Dorsal aspect of Right foot Duration-constant pain Characteristics- sharp Aggravating/alleviating factors- walking Radiation- none Treatments- took OTC pain medications Symptoms- did not have LOC or any additional systemic symptoms. Denies headaches, fever, sore throat, cough, shortness of breath, chest pains, Nausea, vomiting, changes in bowel or bladder or skin rashes. Aside from symptoms as described above, patient has no other complaints at this time. HPI: see above Review of Systems Constitutional: Negative for chills, fatigue and fever. Respiratory: Negative for cough, shortness of breath and wheezing. Cardiovascular: Negative for chest pain, palpitations and leg swelling. Gastrointestinal: Negative for abdominal pain, diarrhea, nausea and vomiting. Genitourinary: Negative for dysuria, frequency and urgency. Musculoskeletal: Positive for joint swelling (Pain to dorsum of foot 8-9/10). Skin: Positive for color change (bruising to dorsum of foot x 1 day). Neurological: Negative for dizziness, weakness and headaches. ALLERGIES Not on File Current Outpatient Medications on File Prior to Visit Medication Sig VYVANSE 40 mg capsule hydrOXYzine HCl (ATARAX) 10 mg tablet 1 to 2 tabs qhs escitalopram oxalate (LEXAPRO) 10 mg tablet Take 1 tablet by mouth once daily. omeprazole (PRILOSEC) 20 mg capsule diclofenac, EC, (VOLTAREN) 75 mg EC tablet No current facility-administered medications on file prior to visit. There is no problem list on file for this patient. Social History Tobacco Use Smoking status: Never Passive exposure: Never Smokeless tobacco: Never Objective BP 130/80 Pulse 72 Temp 36.9 C (98.4 F) Resp 20 Wt 63.1 kg (139 lb 1.8 oz) SpO2 98% Physical Exam Vitals reviewed. Constitutional: General: He is not in acute distress. Appearance: Normal appearance. He is not ill-appearing or toxic-appearing. Cardiovascular: Rate and Rhythm: Normal rate and regular rhythm. Pulses: Normal pulses. Heart sounds: Normal heart sounds. Pulmonary: Effort: Pulmonary effort is normal. Breath sounds: Normal breath sounds. Abdominal: General: Bowel sounds are normal. Palpations: Abdomen is soft. Musculoskeletal: Legs: Skin: General: Skin is warm and dry. Capillary Refill: Capillary refill takes less than 2 seconds. Neurological: Mental Status: He is alert and oriented to person, place, and time. Assessment/Plan 1. Injury of right foot, initial encounter - XR FOOT GENERAL 3V AP/LAT/OBL RIGHT; Future -Patient advised to drink fluids, get rest and take OTC Pain medications as needed. -R.I.C.E. Education given -Ok to use Boot Splint given by Attending Ambulatory Care at [facility] Patient given educational materials - see instructions. Discussed use, benefit, and side effects of prescribed medications. All questions answered. Patient advised to follow up with PCP in one week, or sooner if symptoms worsen or persist. If symptoms become severe- GO TO ED. Patient verbalized understanding and agreeable with treatment plan. Kael Lacey APRN, CNP 05/18/2024 11:45 AM documented in this encounter [facility] Evaluation note Diagnosis Injury of right foot, initial encounter- Primary Injury of right foot, initial encounter [facility], [facility] Recurrent anterior dislocation of right shoulder- Primary S/P anterior Bankart repair of right shoulder documented in this encounter [facility] for referral (narrative)* Diagnostic Procedure Only (Urgent) - Closed Specialty Diagnoses / Procedures Referred By Dianne jackson Referred To Contact XR IMAGING Diagnoses Injury of right foot, initial encounter Procedures XR FOOT GENERAL 3V AP/LAT/OBL RIGHT RADEX FOOT COMPLETE MINIMUM 3 VIEWS Kael Lacey APRN.SENIOR CONTRACTS ADMINISTRATOR [address] [facility] [place] [address] [place] [address] Referral ID Status Reason Start Date Expiration Date Visits Requested Visits Authorized [id number] Closed Financial Clearance Required - OON Payor OON Notification Letter Clearance not met - patient not scheduled & unable to contact patient 05/18/2024 06/17/2025 1 0 [facility] for referral (narrative)* Diagnostic Procedure Only (Urgent) - Closed Specialty Diagnoses / Procedures Referred By Contac t Referred To Contact XR IMAGING Diagnoses Injury of right foot, initial encounter Procedures XR FOOT GENERAL 3V AP/LAT/OBL RIGHT RADEX FOOT COMPLETE MINIMUM 3 VIEWS Kael Lacey APRN.CNP [address], [address] [address] [place] [address] Referral ID Status Reason Start Date Expiration Date Visits Requested Visits Authorized [id number] Closed Financial Clearance Required - OON Payor OON Notification Letter Clearance not met - patient not scheduled & unable to contact patient 05/18/2024 06/17/2025 1 0 [facility] for visit Narrative* Diagnostic Procedure Only (Urgent) - Closed Specialty Diagnoses / Procedures Referred By Dianne jackson Referred To Contact XR IMAGING Diagnoses Injury of right foot, initial encounter Procedures XR FOOT GENERAL 3V AP/LAT/OBL RIGHT RADEX FOOT COMPLETE MINIMUM 3 VIEWS Kael Lacey APRN.DAGO [address], [address] [address] [place] [address] Referral ID Status Reason Start Date Expiration Date Visits Requested Visits Authorized [id number] Closed Financial Clearance Required - OON Payor OON Notification Letter Clearance not met - patient not scheduled & unable to contact patient 05/18/2024 06/17/2025 1 0 [facility] Summary Purpose Family History No Family History Records FoundNo Family History Records FoundNo Family History Records Found Advance Directives No Advanced Directives Records FoundNo Advanced Directives Records FoundNo Advanced Directives Records Found Additional Source Comments Source Comments (unrecognize d section and content) In the event this informatio n is protected by the Federal Confidentiality of Alcohol and Drug Abuse Patient Records regulations: The Federal rules restrict any use of the information to criminally investigate or prosecute any alcohol or drug abuse patient.[facility] the event this information is protected by the Federal Confidentiality of Alcohol and Drug Abuse Patient Records regulations: The Federal rules restrict any use of the information to criminally investigate or prosecute any alcohol or drug abuse patient.[facility] the event this information is protected by the Federal Confidentiality of Alcohol and Drug Abuse Patient Records regulations: The Federal rules restrict any use of the information to criminally investigate or prosecute any alcohol or drug abuse patient.[facility] Reason for Visit (unrecogniz ed section and content) Reason Comments Trauma Right foot injury x 1 day Reason Comments New (unrecognized sect ion and content) No Status Records FoundNo Status Records FoundNo Status Records Found INFORMATION SOURCE (unrecogn ized section and content) DATE CREATED AUTHOR 05/19/2024 [facility] DATE CREATED AUTHOR AUTHOR'S ORGANIZ ATION 06/21/2024 [facility] DATE CREATED AUTHOR AUTHOR'S ORGANIZ ATION 12/22/2024 [facility] FOR RECORDS PERTAINING TO PATIENTS WHO ARE OR HAVE BEEN ENROLLED IN A CHEMICAL DEPENDENCY/SUBSTANCEABUSE PROGRAM, SOME INFORMATION MAY BE OMITTED. This clinical summary was aggregated from multiple sources. Caution should be exercised in using it in the provision of clinical care. This summary normalizes information from multiple sources, and as a consequence, information in this document may materially change the coding, format and clinical context of patient data. In addition, data may be omitted in some cases. CLINICAL DECISIONS SHOULD BE BASED ON THE PRIMARY CLINICAL RECORDS. [facility]. provides no warranty or guarantee of the accuracy or completeness of information in this document.
--- NOTE | 2025-05-15 16:45 | RAD_ITS ---
PROCEDURE: LEFT WRIST MIN 3 VIEWS 05/15/2025 REASON FOR EXAM: FALL, PAIN TECHNIQUE: LEFT WRIST MIN 3 VIEWS COMPARISON: None. FINDINGS: Subtle linear lucencies through the scaphoid are likely acute nondisplaced fractures. Otherwise no acute fracture is seen. No dislocation, alignment is anatomic. Preserved joint spaces. Normal bone mineralization. Mild generalized soft tissue swelling about the wrist. RAD/Wrist min 3 Views IMPRESSION: Probable nondisplaced comminuted fracture of the scaphoid bone. Normal alignme nt. Reading Location: [id number]
[2025-05-15 18:00] VITALS: BP 129/71; PULSE 114; RESP 12; O2SAT 98
--- NOTE | 2025-05-15 18:25 | CT_ITS ---
PROCEDURE: CT LEFT EXTREMITY UPPER WITHOUT CONTRAST 05/15/2025 REASON FOR EXAM: SCAPHOID FRACTURE TECHNIQUE: CT of the left wrist without contrast. Coronal and Sagittal reconstruction series were provided. One or more dose reduction techniques were used (e.g., Automated exposure control, adjustment of the mA and/or kV according to patient size, use of iterative reconstruction technique. RADIATION DOSE SUMMARY: CTDlvol: 9.46 mGy DLP: 244.35 mGycm COMPARISON: Radiographs earlier today 05/15/2025. FINDINGS: Acute nondisplaced comminuted fracture involving the proximal scaphoid bone. Acute nondisplaced fracture at the ventral radial aspect of the triquetrum. Alignment is anatomic. Preserved joint spaces. Normal bone mineralization. Mild subcutaneous soft tissue swelling/edema about the wrist. CT/Extremity Upper without Contra IMPRESSION: 1. Acute nondisplaced comminuted fracture of the proximal scaphoid. 2. Small acute nondisplaced fracture at the ventral radial aspect of the trique trum. Reading Location: [id number]
== END 2025-05-15 18:51 | disposition home or self-care (01) ==
PROVIDERS: Emergency Provider Emergency Medicine; Visit Provider Emergency Medicine
DX: S62.002A Unspecified fracture of navicular [scaphoid] bone of left wrist, initial encounter for closed fracture (principal); W01.0XXA Fall on same level from slipping, tripping and stumbling without subsequent striking against object, initial encounter; W50.0XXA Accidental hit or strike by another person, initial encounter; Y93.66 Activity, soccer
CPT/HCPCS: 29125; 73110; 73200; 99283